=== PATIENT | female | born 1990 | race Caucasian/White ===

== ENCOUNTER 2017-07-01 23:08 | Emergency (ER) | payer OTHER ==
[~2017-07-01] VITALS: Ht 177.8 cm; Wt 99.8 kg
--- NOTE | ~2017-07-01 | CR20 ---
[facility]. [facility] A Service of [facility] & [facility] RADIOLOGY TEXT RESULTS PATIENT: ANDREW BURROWS LOCATION: SED : [birth year] UNIT #: [id number] AGE: [address]: Lydia Gardner SEX: F ORDER DR: [id number] [address] [address] [id number] E MR#: [id number] Acc #: [id number] NAME: ANDREW BURROWS. : 1990 SEX: F STUDY DATE/TIME: 07/02/2017 0:21 UNIT: SED ROOM: STUDY DESCRIPTION: CR Ankle Min 3 Views Lt Attending Physician: Lydia Gardner Pa-C Ordering Physician: Jg Walker M.D. Primary Care Physician: Minda Valenzuela M.D. MEDICAL IMAGING REPORT This report is preliminary unless electronic signature is present. EXAM Left ankle, 07/02/2017 HISTORY 26-year-old female in the ED with left ankle pain and swelling after injury tonight. Lawnmower fell on ankle. TECHNIQUE Three-view left ankle series. FINDINGS No fracture, dislocation or other acute osseous abnormality. Moderate soft tissue swelling is noted over the lateral malleolus. No visible radiopaque soft tissue foreign body. IMPRESSION 1. No acute osseous abnormality. 2. Lateral soft tissue swelling. Dictated by... Nils He M.D. THIS IS AN ELECTRONICALLY VERIFIED REPORT Nils He M.D. at 07/02/2017 10:03 PM David TD: 07/02/2017 10:32 JOB #: [id number] MEDICAL IMAGING REPORT Page 1 of 1
[~2017-07-01 23:08] MED LIST: ACETAMINOPHEN PO; ALBUTEROL 0.5ML; ALBUTEROL MININEB NEB; ALBUTEROL17 GM INH; ALBUTEROL20 ml INH; BACTRIM DS TABL1 TA1 PO; BACTRIM DS TABL1 TA2 PO; CIPRO PO; CLARITIN5 MG PO; CLEOCIN; DELTASONE20 MG PO; DILAUDID2 MG PO; FLAGYL PO; HYDROMET SYRUP480 ML PO; KEFLEX PO; KEFLEX500 MG PO; LORTAB 7.5-5001 TAB PO; MOTRIN600 M1 PO; PHENERGAN PO; PHENERGAN25 MG PO; PREDNISONE PO; PRENATAL1 TA1 PO; PROMETHAZINE-D240 ML PO; PROVENTIL INH0.5 ML HHN; ROBITUSSIN COU118 M6 PO; SINGULAIR PO; VOLTAREN75 MG PO; ZITHROMAX PO
[2017-07-01] MEDS ORDERED: ZOLOFT50 MG PO (23:19)
== END 2017-07-02 01:59 | disposition home or self-care (01) ==
LOC: SED 23:08
DX: S90.02XA Contusion of left ankle, initial encounter (principal); W20.8XXA Other cause of strike by thrown, projected or falling object, initial encounter; Y92.009 Unspecified place in unspecified non-institutional (private) residence as the place of occurrence of the external cause
CPT/HCPCS: 29540; 73610; 99283